=== PATIENT | male | born 1950 | race Two or more races ===

== ENCOUNTER 2018-10-20 23:56 | Emergency (ER) | payer SELFPAY ==
[~2018-10-20] VITALS: Ht 175.3 cm; Wt 73.5 kg
[2018-10-21 00:25] VITALS: BP 140/86
[2018-10-21] MEDS ORDERED: Albuterol/Ipratropium 3ml neb HHN ONE (01:30)
[2018-10-21] MEDS ORDERED: Acetaminophen 500mg (ES) tab ORAL ONE (02:00)
[2018-10-21 02:02] LABS: BASOPHILS % (AUTO) 0.6 % (0.0-2.0); EOSINOPHILS % (AUTO) 0.9 % (0.0-3.0); HEMATOCRIT 50.4 % (42.0-52.0); LYMPHOCYTES % (AUTO) 11.1 % (20.0-45.0); MEAN CORPUSCULAR VOLUME 92 FL (80-99); MONOCYTES % (AUTO) 6.2 % (1.0-10.0); NEUTROPHILS % (AUTO) 81.2 % (45.0-75.0); PLATELET COUNT 346 K/UL (150-450); RED BLOOD COUNT 5.47 M/UL (4.70-6.10); RED CELL DISTRIBUTION WIDTH 12.8 % (11.6-14.8); WHITE BLOOD COUNT 14.4 K/UL (4.8-10.8)
[2018-10-21 02:04] LABS: APPEARANCE,URINE CLEAR; BILIRUBIN, URINE NEGATIVE (NEGATIVE); COLOR,URINE PALE YELLOW; GLUCOSE, URINE (UA) NEGATIVE (NEGATIVE); KETONES,URINE NEGATIVE (NEGATIVE); LEUKOCYTE ESTERASE ,URINE NEGATIVE (NEGATIVE); NITRITE,URINE NEGATIVE (NEGATIVE); PH,URINE 6 (4.5-8.0); PROTEIN,URINE NEGATIVE (NEGATIVE); UROBILINOGEN,URINE NORMAL MG/DL (0.0-1.0)
[2018-10-21 02:13] LABS: ANION GAP 11 mmol/L (5-15); BLOOD UREA NITROGEN 13 mg/dL (7-18); CALCIUM 9.6 MG/DL (8.5-10.1); CARBON DIOXIDE 29 MMOL/L (21-32); CHLORIDE 98 MMOL/L (98-107); CREATININE 0.8 MG/DL (0.55-1.30); POTASSIUM 3.7 MMOL/L (3.5-5.1); SODIUM 138 MMOL/L (136-145)
[2018-10-21 02:19] LABS: ALANINE AMINOTRANSFERASE 21 U/L (12-78); ALBUMIN 3.7 G/DL (3.4-5.0); ALBUMIN/GLOBULIN RATIO 0.8 (1.0-2.7); ALKALINE PHOSPHATASE 93 U/L (46-116); ASPARTATE AMINO TRANSFERASE 19 U/L (15-37); BILIRUBIN,TOTAL 0.6 MG/DL (0.2-1.0)
[2018-10-21 03:03] VITALS: BP 130/78
--- NOTE | 2018-10-21 04:19 | Emergency Room Report ---
History of Present Illness General Chief Complaint: Pain Source: Patient Present Illness HPI Patient is a 67-year-old male presented for increased right-sided shoulder pain. Patient reports of increased sharp pain. He reports having prior history of shoulder injury. He denies any fever. He reports having been a smoker. He denies any vomiting or diarrhea. History is markedly limited by patient due to being a poor historian. Allergies: Coded Allergies: TETRACYCLINE (Verified Allergy, Unknown, 10/21/18) Patient History Past Medical History: see triage record Reviewed Nursing Documentation: PMH: Agreed; PSxH: Agreed Nursing Documentation-PMH Past Medical History: No Stated History Review of Systems All Other Systems: limited - by poor historian Physical Exam Vital Signs Date Time Temp Pulse Resp B/P (MAP) Pulse Ox O2 Delivery O2 Flow Rate FiO2 10/21/18 00:09 98.2 106 18 146/92 98 Room Air 10/21/18 01:43 21 Sp02 EP Interpretation: reviewed, normal General Appearance: normal inspection, well appearing, no apparent distress, alert, GCS 15 Head: atraumatic ENT: normal ENT inspection, hearing grossly normal, normal voice Neck: normal inspection, full range of motion, supple, no bony tend Respiratory: normal inspection, lungs clear, normal breath sounds, no respiratory distress, no retraction, no wheezing Cardiovascular #1: regular rate, rhythm, no edema Gastrointestinal: normal inspection, normal bowel sounds, non tender, soft, no guarding, no hernia Genitourinary: no CVA tenderness Musculoskeletal: normal inspection, back normal, normal range of motion Neurologic: normal inspection, alert, responsive, speech normal Psychiatric: mood/affect normal Skin: normal inspection, normal color, no rash Medical Decision Making Diagnostic Impression: Primary Impression: Acromial fracture ER Course Patient presented for right shoulder pain. Differential diagnosis include was not limited to fracture, dislocation, sprain, contusion among others. Because of complexity of patient's case laboratory testing and imaging studies were ordered.X-ray imaging of the right shoulder 3 views interpreted by me showed distal fracture to the lateral aspect of the acromion process. Patient's humerus and scapula appear otherwise intact. Patient was placed in a sling. Laboratory testing showed mildly elevated white blood count. CXR read by radiology showed faint midlung infiltrate. Patient declined breathing treatment. Patient was endorsed to Dr. Baird pending social work faculty member consult. Labs Test 10/21/18 01:35 10/21/18 01:55 Urine Color Pale yellow Urine Appearance Clear Urine pH 6 (4.5-8.0) Urine Specific [place] 1.015 (1.005-1.035) Urine Protein Negative (NEGATIVE) Urine Glucose (UA) Negative (NEGATIVE) Urine Ketones Negative (NEGATIVE) Urine Blood Negative (NEGATIVE) Urine Nitrite Negative (NEGATIVE) Urine Bilirubin Negative (NEGATIVE) Urine Urobilinogen Normal MG/DL (0.0-1.0) Urine Leukocyte Esterase Negative (NEGATIVE) Urine Opiates Screen Negative (NEGATIVE) Urine Barbiturates Screen Negative (NEGATIVE) Phencyclidine (PCP) Screen Negative (NEGATIVE) Urine Amphetamines Screen Negative (NEGATIVE) Urine Benzodiazepines Screen Negative (NEGATIVE) Urine Cocaine Screen Negative (NEGATIVE) Urine Marijuana (THC) Screen Negative (NEGATIVE) White Blood Count 14.4 K/UL (4.8-10.8) Red Blood Count 5.47 M/UL (4.70-6.10) Hemoglobin 17.0 G/DL (14.2-18.0) Hematocrit 50.4 % (42.0-52.0) Mean Corpuscular Volume 92 FL (80-99) Mean Corpuscular Hemoglobin 31.0 PG (27.0-31.0) Mean Corpuscular Hemoglobin Concent 33.7 G/DL (32.0-36.0) Red Cell Distribution Width 12.8 % (11.6-14.8) Platelet Count 346 K/UL (150-450) Mean Platelet Volume 6.4 FL (6.5-10.1) Neutrophils (%) (Auto) 81.2 % (45.0-75.0) Lymphocytes (%) (Auto) 11.1 % (20.0-45.0) Monocytes (%) (Auto) 6.2 % (1.0-10.0) Eosinophils (%) (Auto) 0.9 % (0.0-3.0) Basophils (%) (Auto) 0.6 % (0.0-2.0) Sodium Level 138 MMOL/L (136-145) Potassium Level 3.7 MMOL/L (3.5-5.1) Chloride Level 98 MMOL/L (98-107) Carbon Dioxide Level 29 MMOL/L (21-32) Anion Gap 11 mmol/L (5-15) Blood Urea Nitrogen 13 mg/dL (7-18) Creatinine 0.8 MG/DL (0.55-1.30) Estimat Glomerular Filtration Rate > 60 mL/min (>60) Glucose Level 104 MG/DL (74-106) Calcium Level 9.6 MG/DL (8.5-10.1) Total Bilirubin 0.6 MG/DL (0.2-1.0) Aspartate Amino Transf (AST/SGOT) 19 U/L (15-37) Alanine Aminotransferase (ALT/SGPT) 21 U/L (12-78) Alkaline Phosphatase 93 U/L (46-116) Pro-B-Type Natriuretic Peptide 43 pg/mL (0-125) Total Protein 8.1 G/DL (6.4-8.2) Albumin 3.7 G/DL (3.4-5.0) Globulin 4.4 g/dL Albumin/Globulin Ratio 0.8 (1.0-2.7) Salicylates Level 2.5 ug/mL (2.8-20) Acetaminophen Level < 2 MCG/ML (10-30) Serum Alcohol < 3 mg/dL Last Vital Signs Date Time Temp Pulse Resp B/P (MAP) Pulse Ox O2 Delivery O2 Flow Rate FiO2 10/21/18 03:03 98.0 80 16 130/78 98 Room Air 10/21/18 01:43 21 Status: improved Condition: Stable Scripts No Active Prescriptions or Reported Meds Referrals: NOT CHOSEN IPA/,REFERRING (PCP) Felix Mendenhall MD Oct 21, 2018 04:19
[2018-10-21 06:01] VITALS: BP 132/81
[2018-10-21 08:20] VITALS: BP 126/76
--- NOTE | 2018-10-21 12:21 | Diagnostic Imaging Report ---
Indication: Shortness of breath Technique: 3 views of the right shoulder Comparison: none Findings: Exam is somewhat limited, as patient would only allow limited positioning. No Y-view obtained no evidence of humeral fracture. There is an unusual comminuted fracture of the acromion. Extensive fracture fragments are somewhat out of proportion to the degree of acromial defect, however. There is slight widening of the acromioclavicular joint and slight irregularity of the clavicular head Impression: Somewhat limited exam as described Unusual comminuted fracture of the acromion. Extent of fracture fragments somewhat out of proportion to degree of acromion bone defect, and there may be a significant component of heterotopic ossification as well; acuity of this injury therefore indeterminate Nonspecific slight irregularity of the clavicular head. Possible slight widening of the acromioclavicular distance these findings are nonspecific but acromioclavicular injury of indeterminate age possible This agrees with the preliminary interpretation provided by the emergency room physician
--- NOTE | 2018-10-21 12:23 | Diagnostic Imaging Report ---
Indication: Shortness of breath Technique: One view of the chest Comparison: none Findings: Patient's chin obscures the upper mediastinum. Ill-defined faint opacity is seen in the right midlung periphery. The lungs and pleural spaces are otherwise clear. The heart size is normal. Impression: Limited exam as described. Possible faint right midlung peripheral infiltrate. Correlate with clinical findings This agrees with the preliminary interpretation provided overnight by [facility] service.
== END 2018-10-21 | disposition left against medical advice (07) ==
LOC: EDBD 23:56 → EMR 10-21 00:32
DX: S42.121A Displaced fracture of acromial process, right shoulder, initial encounter for closed fracture (principal); X58.XXXA Exposure to other specified factors, initial encounter; Y92.9 Unspecified place or not applicable; Z88.1 Allergy status to other antibiotic agents
CPT/HCPCS: 36415; 71045; 73030; 80053; 80307; 81003; 83880; 85025; 94664; 99284; G0480; 80329; J7620